=== PATIENT | male | born 1975 | race Caucasian/White ===

== ENCOUNTER 2017-05-30 10:18 | Observation (INO) | payer OTHER ==
[~2017-05-30] VITALS: Ht 200.7 cm; Wt 122.7 kg
--- NOTE | ~2017-05-30 | HEMODYNAMI ---
PATIENT:SOM TORRES MEDICAL RECORD: [id number] : 73 LOCATION:[facility] D.2117 ADMISSION DATE: 05/30/17 Generatedon:05/31/201711:18 Patient name: SOM TORRES Patient #: [id number] SSN: : 1975 Date of study: 05/31/2017 Page: Of Hemodynamic Procedure Report Patient Data Patient Demographics Procedure consent was obtained First Name: SOM Gender: Male Last Name: BRIAN : 1975 Patient #: [id number] Age: 42 year(s) Race: Unknown Additional ID: [id number] Contact details [address]: [address] [place] [address] State: [place] City: [place] Zip code: [address] Admission Admission Data Admission Date: 05/30/2017 Admission Time: 13:06 Room #: D.2117 Lab Results Lab Result Date: 05/31/2017 Lab Result Time: 0:00 Biochemistry Name Units Result Min Max BUN mg/dl 14 --(--*-)-- 7 18 Creatinine mg/dl 0.9 --(-*--)-- 0.6 1.3 CBC Name Units Result Min Max Hematocrit % 41.6 -*(----)-- 42 54 Hemoglobin g/dl 14.2 --(*---)-- 13.5 17.5 Procedure Procedure Types Cath Procedure Diagnostic Procedure C [facility] w/Coronaries Miscellaneous Procedures Moderate Sedation up to 15 minutes Procedure Description Procedure Date Procedure Date: 05/31/2017 Procedure Start Time: 11:09 Procedure End Time: 11:17 Procedure Staff Name Function Gus Sanabria MD Performing Physician Gemma Mcelroy RT Scrub Sudarshan Noyola RN Nurse Michele Paez RT Monitor Procedure Data Cath Procedure Fluoroscopy Diagnostic fluoroscopy Total fluoroscopy Time: 1.2 time: 1.2 min min Diagnostic fluoroscopy Total fluoroscopy dose: 338 dose: 338 mGy mGy Contrast Material Contrast Material Type Amount (ml) Isovue 300 40 Entry Location Entry Primary Successful Side Size Upsize Upsize Entry Closure Angelo ccessful Closure Location (Fr) 1 (Fr) 2 (Fr) Remarks Device Remarks Radial Right 6 Fr Mechanical artery Short Compression Estimated blood loss: 10 ml Diagnostic catheters Device Type Used For End Catheter Placement Diagnostic Terumo 5Fr Procedure Greenwood 110cm catheter Procedure Complications No complications Procedure Medications Medication Administration Route Dosage 0.9% NaCl I.V. 100 ml/hr Oxygen NC 2 l/min Heparin Flush Bag added to field 2 bags (1000units/500ml NS) Lidocaine 2% added to field 20 Benadryl I.V. 50 mg Versed I.V. 2 mg Fentanyl I.V. 100 mcg Radial Cocktail added to field 1 syringe (Verapomil 2mg/Nitro 400mcg/Heparin 1500units) Radial Cocktail I.A. 1 syringe (Verapomil 2mg/Nitro 400mcg/Heparin 1500units) Versed I.V. 1 mg Hemodynamics Rest HGB: 14.2 (g/dl) Heart Rate: 92 (bpm) Snapshots Pre Cath Intra NCS Post Cath Vital Signs Time Heart Resp SPO2 etCO2 NIBP (mmHg) Rhythm Pain Sedation Rate (ipm) (%) (mmHg) Status Level (bpm) 11:06:22 87 18 96 33.6 149/82(107) NSR 0 (11) 10(A) , No pain 11:11:06 87 19 94 37.4 130/79(92) NSR 0 (11) 10(A) , No pain 11:15:47 90 7 91 36.6 119/68(103) NSR 0 (11) 9(A) , No pain Medications Time Medication Route Dose Verified Delivered Reason Notes Effectiveness by by 11:06:20 0.9% NaCl I.V. 100 Sudarshan Sudarshan Per ml/hr Jazmín Noyola physician RN RN 11:06:30 Oxygen NC 2 l/min Sudarshan Sudarshan Per Jazmín Noyola physician RN RN 11:06:45 Heparin Flush added 2 bags Sudarshan Sudarshan used for Bag to Jazmín Noyola procedure (1000units/500ml field ROBE RN NS) 11:06:57 Lidocaine 2% added 20ml Sudarshan Sudarshan for local to vial Sangitaigan Jazmín anesthetic field NAGEL RN 11:07:17 Benadryl I.V. 50 mg Sudarshan Sudarshan for sedation Jazmín Noyola RN RN 11:07:36 Versed I.V. 2 mg Sudarshan Sudarshan for sedation Jazmín Noyola RN RN 11:09:00 Fentanyl I.V. 100 mcg Sudarshan Sudarshan for sedation Jazmín Noyola RN RN 11:09:12 Radial Cocktail added 1 Sudarshan Sudarshan for (Verapomil to syringe Lordaisha Noyola vasodilation 2mg/Nitro field RN RN 400mcg/Heparin 1500units) 11:10:57 Radial Cocktail I.A. 1 Sudarshan Gus for (Verapomil syringe Jazmín Sanabria MD vasodilation 2mg/Nitro RN 400mcg/Heparin 1500units) 11:11:14 Versed I.V. 1 mg Sudarshan Sudarshan for sedation Jazmín Noyola RN ground transportation operator Log Time Note 10:30:51 Michele Paez RT(R) sent for patient. Start room use. 10:42:58 Time tracking: Regular hours 10:43:01 Plan of Care:Hemodynamics will remain stable., Cardiac rhythm will remain stable., Comfort level will be maintained., Respiratory function will remain adequate., Patient/ family verbilizes understanding of procedure., Procedure tolerated without complication., Recovers from procedure without complications.. 10:44:32 H&P Date Dictated: 05/30/2017 Within 30 days and on chart.. 10:45:33 Lab Result : Creatinine 0.9 mg/dl 10:45:33 Lab Result : BUN 14 mg/dl 10:45:33 Lab Result : Hemoglobin 14.2 g/dl 10:45:33 Lab Result : Hematocrit 41.6 % 10:45:37 Lab results completed and on chart. 10:50:12 Patient received from Pre/Post Procedure Room to CCL 1 Alert and oriented. Tansferred to table in Supine position. 10:50:13 Warm blankets applied, and kamron hugger turned on for patient comfort. 10:50:14 Correct patient and procedure confirmed by team. 10:50:15 Signed procedure consent form obtained from patient. 10:50:16 ECG and BP/O2 sat monitors applied to patient. 11:05:21 Vital chart was started 11:05:29 Baseline sample Acquired. 11:05:33 Rhythm: sinus rhythm 11:05:34 Full Disclosure recording started 11:05:35 Pre-procedure instructions explained to patient. 11:05:35 Pre-op teaching completed and patient verbalized understanding. 11:05:37 Family in patients room. 11:05:38 Patient NPO since Midnight. 11:05:39 Is the patient allergic to Iodine/contrast media? No. 11:05:56 Is patient on blood thinner?No 11:06:01 Patient diabetic? No. 11:06:03 Previous problem with sedation/anesthesia? No ? 11:06:04 Snore? Yes 11:06:05 Sleep apnea? No 11:06:06 Deviated septum? No 11:06:06 Opens mouth fully? Yes 11:06:07 Sticks out tongue? Yes 11:06:09 Airway obstruction? Yes Asthma 11:06:10 Dentures? No ? 11:06:20 0.9% NaCl 100 ml/hr I.V. was administered by Sudarshan Noyola RN; Per physician; 11:06:22 Pre procedure: right dorsailis pedis pulse 1+ Palpable, but thready & weak; easily obliterated 11:06:24 Modified Peterson's test Ulnar < 7 seconds 11:06:26 Patient pain scale 0/10 ?. 11:06:30 Oxygen 2 l/min NC was administered by Sudarshan Noyola RN; Per physician; 11:06:33 IV patent on arrival in right hand with 0.9% NaCl at [facility]. 11:06:37 Right Radial & Right Groin area was prepped with chlora-prep and draped in sterile fashion 11:06:38 Alarms reviewed by R. N. 11:06:39 Sharps counted by scrub and verified by R.N. 11:06:45 Heparin Flush Bag (1000units/500ml NS) 2 bags added to field was administered by Sudarshan Noyola RN; used for procedure; 11:06:45 --------ALL STOP TIME OUT------ 11:06:45 Final Timeout: patient, procedure, and site verified with staff and physician. All members of the team are in agreement. 11:06:47 Right Radial & Right Groin site verified by team. 11:06:50 Physical assessment completed. ASA score P 2 - A patient with mild systemic disease as per Gus Sanabria MD. 11:06:54 Sedation plan: IV Moderate Sedation Versed, Fentanyl 11:06:57 Lidocaine 2% 20ml vial added to field was administered by Sudarshan Noyola RN; for local anesthetic; 11:07:17 Benadryl 50 mg I.V. was administered by Sudarshan Noyola RN; for sedation; 11:07:24 Use device set Radial Dx 11:07:26 Tegaderm 4 x 4 opened to sterile field. 11:07:27 Acist Hand Control opened to sterile field. 11:07:27 Acist Manifold opened to sterile field. 11:07:28 Acist Syringe opened to sterile field. 11:07: Medline Cath Pack opened to sterile field. 11:07: Bag Decanter opened to sterile field. 11:07:29 Terumo 6Fr Slender Glidesheath opened to sterile field. 11:07:30 St Claus 260cm J .035 wire opened to sterile field. 11:07:30 MBrace Wrist Support opened to sterile field. 11:07:36 Versed 2 mg I.V. was administered by Sudarshan Noyola RN; for sedation; 11:09:00 Fentanyl 100 mcg I.V. was administered by Sudarshan Noyola RN; for sedation; 11:09:12 Radial Cocktail (Verapomil 2mg/Nitro 400mcg/Heparin 1500units) 1 syringe added to field was administered by Sudarshan Noyola RN; for vasodilation; 11:09:41 Procedure started. 11:09:50 Local anesthetic to right radial artery with Lidocaine 2% by Gus Sanabria MD.INITIAL ACCESS ONLY 11:10:01 A 6 Fr Short sheath was inserted into the Right Radial artery 11:10:57 Radial Cocktail (Verapomil 2mg/Nitro 400mcg/Heparin 1500units) 1 syringe I.A. was administered by Gus Sanabria MD; for vasodilation; 11:11:14 Versed 1 mg I.V. was administered by Sudarshan Noyola RN; for sedation; 11:11:19 A Diagnostic Terumo 5Fr Greenwood 110cm catheter was advanced over the wire and used for Procedure. 11:11:22 LV angiography performed. 11:11:23 LV gram done using ESTES 11:11:29 EF : 50 % 11:11:33 Injector settings: Ml/sec: 7, Volume: 15, 11:11:59 RCA angiography performed. 11:12:22 LCA angiography performed. 11:12:43 Catheter removed. 11:12:53 Terumo TR Band Standard opened to sterile field. 11:13:02 Sheath removed intact; hemostasis achieved with Mechanical Compression to the Right Radial artery. 11:13:08 Procedure ended.(Physican Out) 11:13:21 Fluoroscopy time 01.20 minutes. 11:13:25 Fluoroscopy dose: 338 mGy 11:13:25 Flurop Dose total: 338 11:13:29 Contrast amount:Isovue 300 40ml. 11:13:30 Sharps counted by scrub and verified by R.N. 11:13:34 TR band inflated with 12cc of air. 11:13:35 Insertion/operative site no bleeding no hematoma. 11:13:37 Post Procedure Pulses reassessed and unchanged 11:13:48 Post-procedure physical assessment completed. ASA score P 2 - A patient with mild systemic disease as per Gus Sanabria MD. 11:13:50 Post procedure rhythm: unchanged. 11:13:53 Estimated blood loss: 10 ml 11:13:55 Post procedure instruction explained to patient.Patient verbalizes understanding. 11:13:56 Patient needs reinforcement of post procedure teaching. 11:15:05 Procedure and supply charges have been captured, reviewed, submitted and are correct. 11:15:10 Procedure Complication : No complications 11:17:40 Vital chart was stopped 11:17:41 See physician's report for complete and final results. 11:17:43 Report given to PCU. 11:17:47 Patient transfered to PCU with Bed. 11:17:50 Procedure ended. 11:17:50 Full Disclosure recording stopped 11:18:28 End room use (Document Last) Device Usage Item Name Manufacture Quantity Catalog Hospital Part Current Minimal Lot# / Number Charge Number Stock Stock Serial# Code Tegaderm 4 1 [id number] [id number] [id number] 5 x 4 Acist Hand Acist 1 93930 934438 054369 026300 5 Control [employer] Inc Acist Acist 1 50952 651093 598961 301008 5 Manifold [employer] Inc Acist Acist 1 40012 767710 739247 197233 20 Syringe Medical Systems Inc Medline Cardinal 1 [id number] 133384 96158 535941 5 Cath Pack Health Bag Microtek 1 2001S 797792 82162 656202 5 Decanter [employer] Inc. Terumo 6Fr Terumo 1 [id number] 800176 678683 400044 [address] St Claus 1 540756 317925 823141 490033 30 260cm J .035 wire MBrace Advanced 1 [id number] 091803 83380 334574 5 Wrist Vascular Support Dynamics Diagnostic Terumo 1 21-2805 759531 939227 731670 5 Terumo 5Fr Greenwood 110cm catheter Terumo TR Terumo 1 [id number] 620204 359051 179810 40 Band Standard Signature Audit [place] Stage Time Signature Unsigned Intra-Procedure 05/31/2017 Michele Paez 11:18:49 AM RT(R) Signatures Monitor : Michele Paez RT Signature : Date : Time : [id number] [place] [address]
[2017-05-30 11:02] LABS: HEMATOCRIT 43.9 % (42.0-54.0); MCHC 34.2 g/dL (31.0-37.0); MCV 87.8 fL (80.0-100.0); MEAN PLATELET VOLUME 10.2 fL (7.4-10.4); PLATELET COUNT 299 10x3/uL (130-400); WBC 6.6 10x3/uL (4.8-10.8)
[2017-05-30 11:26] LABS: ALKALINE PHOSPHATASE 79 U/L (46-116); ALT (SGPT) 30 U/L (10-68); BILIRUBIN - TOTAL 0.46 mg/dL (0.2-1.3); CALC OSMOLALITY 281 mosm/kg (275-300); CALCIUM 9.3 mg/dL (8.5-10.1); CARBON DIOXIDE 25.4 mmol/L (21.0-32.0); CHLORIDE - SERUM 102 mmol/L (98-107); GLUCOSE 126 mg/dL (74-106); POTASSIUM - SERUM 3.7 mmol/L (3.5-5.1); PROTEIN - SERUM 7.3 g/dL (6.4-8.2); SODIUM 139 mmol/L (136-145); UREA NITROGEN 19 mg/dL (7-18); eGFR NON AFRICAN AMERICAN 87 mL/min (90-120)
[2017-05-30 11:30] LABS: LYMPHOCYTES 52 % (15-50); MONOCYTES 5 % (2-11); NEUTROPHILS 38 % (40-80); PLATELET ESTIMATE NORMAL
[2017-05-30 11:35] LABS: CKMB 1.6 U/L (0.0-3.6); CREATINE KINASE 142 UL (21-232); TROPONIN-I < 0.017 ng/mL (0.000-0.060)
--- NOTE | 2017-05-30 14:32 | NUR ---
TRANSFER FROM ER BY W/C. EVERINTED TO ROOM. CALL LIGHT IN REACH. WILL CONT. PLAN OF CARE.
[2017-05-30 14:39] VITALS: BP 120/70; Ht 200.7 cm; Wt 122.7 kg
[2017-05-30 15:32] LABS: CKMB 1.4 U/L (0.0-3.6); CREATINE KINASE 142 UL (21-232)
[2017-05-30 15:38] LABS: TROPONIN-I < 0.017 ng/mL (0.000-0.060)
[2017-05-30 16:00] VITALS: BP 136/76
[2017-05-30 20:00] VITALS: BP 125/83
[2017-05-30 20:21] LABS: CKMB 0.9 U/L (0.0-3.6); CREATINE KINASE 113 UL (21-232)
[2017-05-30 20:22] LABS: TROPONIN-I < 0.017 ng/mL (0.000-0.060)
[2017-05-31] VITALS: BP 134/74
[2017-05-31 03:31] LABS: BASOPHILS 0.2 % (0-2); HEMATOCRIT 41.6 % (42.0-54.0); HEMOGLOBIN 14.2 g/dL (13.5-17.5); IMMATURE GRANULOCYTES 0.2 % (0-5); LYMPHOCYTES 47.6 % (15-50); MCH 30.3 pg (26.0-34.0); MCHC 34.1 g/dL (31.0-37.0); MCV 88.7 fL (80.0-100.0); MEAN PLATELET VOLUME 9.7 fL (7.4-10.4); MONOCYTES 9.7 % (2-11); NEUTROPHILS 40.3 % (40-80); PLATELET COUNT 255 10x3/uL (130-400); RBC 4.69 10x6/uL (4.20-6.10); RDW 12.8 % (11.5-14.5); WBC 5.4 10x3/uL (4.8-10.8)
[2017-05-31 03:58] LABS: ALBUMIN 3.6 g/dL (3.4-5.0); ALKALINE PHOSPHATASE 70 U/L (46-116); ALT (SGPT) 29 U/L (10-68); CALCIUM 8.7 mg/dL (8.5-10.1); CARBON DIOXIDE 28.3 mmol/L (21.0-32.0); CHLORIDE - SERUM 104 mmol/L (98-107); CKMB 0.8 U/L (0.0-3.6); CREATINE KINASE 97 UL (21-232); CREATININE - SERUM 0.9 mg/dL (0.6-1.3); GLUCOSE 97 mg/dL (74-106); POTASSIUM - SERUM 3.9 mmol/L (3.5-5.1); PROTEIN - SERUM 6.7 g/dL (6.4-8.2); SODIUM 139 mmol/L (136-145); eGFR NON AFRICAN AMERICAN > 90 mL/min (90-120)
[2017-05-31 03:59] LABS: CALC OSMOLALITY 278 mosm/kg (275-300); TROPONIN-I < 0.017 ng/mL (0.000-0.060); UREA NITROGEN 14 mg/dL (7-18)
[2017-05-31 04:00] VITALS: BP 130/76
--- NOTE | 2017-05-31 07:35 | NUR ---
ASSESSMENT COMPLETED. PT LYING IN BED. DENIES ANY NEEDS. SL TO RIGHT HAND . TELEMERTY SHOWS SR 65. UP AB VANESSA. SR UP WITH CALL LIGHT IN REACH. NPO FOR TEST.
[2017-05-31 08:34] VITALS: BP 119/72
--- NOTE | 2017-05-31 10:45 | NUR ---
BACK FROM SAP BI ARCHITECT. V/S STABLE. RIGHT WRIST TR BAND IN PLACE. NO BLEEDING, FINGERS WARM. TELEMERTY SHOWS SR. FAMILY AT BEDSIDE. WILL MONITOR
--- NOTE | 2017-05-31 10:49 | NUR ---
TO EPIC TRAINER PER BED
[2017-05-31 12:23] VITALS: BP 110/71
[2017-05-31] MEDS ORDERED: PROTONIX40 MG PO (12:32)
--- NOTE | 2017-05-31 13:36 | NUR ---
RESTING QUIELTY. NO EDEMA NOR BLEEDING AT SITE. MONITOR SHOWS NSR @ 68.
--- NOTE | 2017-05-31 14:18 | NUR ---
I/2 AIR REMOVED FROM TR BAND. NO BLEEDING OR SWELLING. TELEMERTY SHOWS SR. V/S STABLE
--- NOTE | 2017-05-31 15:37 | NUR ---
PT DCD. IV DCD WITH TIP INTACT. INSTRUCTION GIVEN TO PT AND . TO PRIVATE CAR PER WHEELCHAIR
--- NOTE | 2017-06-01 16:42 | EC ---
PATIENT:SOM TORRES DATE OF SERVICE: 05/30/17 SEX: M MEDICAL RECORD: [id number] DATE OF : [birth year] LOCATION:D. D.211 AGE OF PATIENT: 42 ADMISSION DATE: 05/30/17 REFERRING PHYSICIAN: INTERPRETING PHYSICIAN: LISA SANABRIA MD ECHOCARDIOGRAM REPORT ECHO CHARGES 4 ECHO COMPLETE CLINICAL DIAGNOSIS: SOB ECHOCARDIOGRAPHIC MEASUREMENTS (adult normal given) AC root (d.<3.7cm) 2.7 cm LV Septum d (<1.2 cm> 1.0 cm Valve Excursion 2.2 cm LV Septum (systole) 1.8 cm Left Atria (s.<4.0cm> 4.0 cm LVPW d(<1.2cm) 1.1 cm RV (d.<2.3cm) 3.6 cm LVPW (sytole) 1.9 cm LV diastole(<5.6CM) 5.3 cm MV E-F(>70mm/sec) cm LV systole 2.9 cm LVOT Diameter 2.1 cm MV exc.(>10mm) cm Est.ejection fraction (50-75%) % Pericardial Effusion N DOPPLER: LVIT cm/sec A 52.0 cm/sec E 70.0 cm/sec LA cm/sec RVSP 21.0 mmHg LVOT 96.0 cm/sec AOP1/2T m/s Asc. Ao 147 cm/sec RVOT 64.0 cm/sec RA cm/sec PA 84.0 cm/sec AV Gradient Peak 8.6 mmHg AV Mean 4.1 mmHg AV Area 2.3 cm MV Gradient Peak 3.5 mmHg MV Mean 1.3 mmHg MV Area cm COMMENTS: Rubber Stamp Maker: Blaise LAWSONOE Field Engineer: 1 Dr. Sanabria TAPE# PACS DATE OF SERVICE: 05/31/2017 ECHOCARDIOGRAM FINDINGS: 1. Left ventricular chamber size is within normal limits. Left ventricular systolic function is normal. Overall ejection fraction estimated at 55%. 2. Left atrium is upper limits of normal at 4.0 cm. Right atrium and right ventricular chamber sizes are mildly dilated. 3. Valvular structures have normal structure and motion. ECHOCARDIOGRAM REPORT [id number] SOM TORRES 4. Doppler interrogation only reveals trace mitral regurgitation, trace tricuspid regurgitation. No other valvular insufficiency or stenosis. Pulmonary systolic pressure is normal estimated at 21 mmHg. 5. No evidence of pericardial effusion or left ventricular thrombus. TRANSINT:[id number] Voice Confirmation ID: [id number] DOCUMENT ID: [id number] LISA SANABRIA MD at 1642 CC: DEMOND FAIRCHILD MD [id number] DICTATION DATE: 06/01/17 1021 CHARGE HISTOTECHNOLOGIST: 06/01/17 1132 DIS IN 05/31/17 [facility] [address] [place] [id number]
--- NOTE | 2017-06-01 16:42 | OP ---
PATIENT NAME: SOM TORRES MEDICAL RECORD: [id number] :[birth year] LOCATION:D.M2 D.2117 ADMISSION DATE:05/30/17 SURGEON: LISA HUSSEIN MD DATE OF OPERATION: 05/31/2017 PROCEDURES: 1. Left heart catheterization. 2. Selective coronary angiography. 3. Left ventriculogram. INDICATION: Chest pain of unknown etiology. PROCEDURE IN DETAIL: After informed consent was obtained and after detailed explanation of risks, benefits as well as alternative therapies, the patient elected to proceed with angiogram and heart catheterization. The right radial area was prepped and draped in normal sterile fashion. The right radial artery was cannulated via modified Seldinger technique with placement of 5-Jamaican sheath. All catheters exchanged through this sheath. FINDINGS: Left ventriculogram was performed in standard 30-degree ESTES view, reveals good cardiac wall motion throughout all segments. Overall ejection fraction estimated 60%. SELECTIVE CORONARY ANGIOGRAPHY: Left main, left anterior descending, left circumflex, and right coronary artery are all smooth-walled vessels with no angiographic evidence of coronary artery disease. OVERALL IMPRESSION: 1. No angiographic evidence of coronary artery disease. 2. Normal left heart pressures. 3. Normal left ventricular systolic function. Chest pain is noncardiac in etiology. No further cardiac workup needs to be ascertained. TRANSINT:[id number] Voice Confirmation ID: [id number] DOCUMENT ID: [id number] LISA HUSSEIN MD at 1642 CC: [id number] DICTATION DATE: 05/31/17 1117 LINOTYPE MACHINIST APPRENTICE: 05/31/17 1227 DIS IN 05/31/17 [facility] [address] [place] [address]
== END 2017-05-31 15:39 | disposition home or self-care (01) ==
LOC: D.ER 10:18 → D.M2 13:06 → OBSVTIME 13:06 → D.M2 13:06
PROVIDERS: Physician Assistant; ADMIT Family Medicine
DX: R07.89 Other chest pain (principal); J45.909 Unspecified asthma, uncomplicated; Z82.49 Family history of ischemic heart disease and other diseases of the circulatory system